=== PATIENT | female | born 1960 | race Caucasian/White ===

== ENCOUNTER 2017-02-27 11:55 | Emergency (ER) | payer OTHER ==
[2017-02-27 12:06] VITALS: BP 158/90; PULSE 99; RESP 18; TEMP 98.2; O2SAT 96
[2017-02-27] MEDS ORDERED: IBUPROFEN 200 MG TAB PO ONE (12:26)
--- NOTE | 2017-02-27 12:28 | UCPHY ---
H & P Time Seen by Provider: 02/27/17 12:12 Patient Type: New HPI/ROS: Patient has left ear pain after exposure to loud noise work. 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 This caused physical pain to the left ear while at work at 930 a.m. this morning with persistent mild ache. She has no other associated symptoms. She describes the current intensity as 2/10 in intensity. ROS: No tinnitus No change in her hearing on the affected side. 5 point ROS is otherwise negative Smoking Status: Never smoked Physical Exam: Physical Exam Vital signs are normal. General: No acute distress HEENT: Atraumatic. Eyes: Pupils equal and react to light. Extraocular motions are intact. Ears: Right external canal and TM clear left external canal and TM clear. There is no evidence of TM rupture or other abnormal findings. She reports Lungs: No respiratory distress. Cardiac: Brisk capillary refill is intact throughout. Skin: No rash or pallor. Neuro: Alert and oriented x3 with no sensorimotor deficits. She reports normal hearing in the affected ear when tested with finger rubbing bilaterally Constitutional: Initial Vital Signs Temperature (C) 36.8 C 02/27/17 11:57 Heart Rate 99 02/27/17 11:57 Respiratory Rate 18 02/27/17 11:57 Blood Pressure 158/90 H 02/27/17 11:57 O2 Sat (%) 96 02/27/17 11:57 O2 Delivery Mode Room Air Allergies/Adverse Reactions: celery Allergy (Severe, Verified 02/27/17 12:06) Swelling in mouth tree nut [Nuts] Allergy (Severe, Verified 02/27/17 12:06) Swelling in mouth narcotics Allergy (Severe, Uncoded 02/27/17 12:06) Vomiting Home Medications: Medication Instructions Recorded NK [No Known Home Meds] 02/27/17 Medical Decision Making ED Course/Re-evaluation: The patient with benign exam after exposure to loud noise. She may have spasm of the tensor tympani muscle or other cause of earache. Counseled her to follow up with work comp clinic. Departure - Departure Disposition: Home, Routine, Self-Care Clinical Impression: Otalgia of left ear Condition: Good Instructions: Earache (ED) Additional Instructions: Diagnosis: Otalgia Plan: No work for the next 2 days Consider ear protection with cotton balls while at work Ibuprofen for discomfort as needed Symptoms should improve over the next 2-3 days. Follow up with your work comp clinic if you have any ongoing symptoms beyond the next few days Referrals: NONE *PRIMARY CARE P,. [Primary Care Provider] - As per Instructions Stand Alone Forms: Work Excuse - PQRS PQRS Measurement: NA
== END 2017-02-27 12:41 | disposition home or self-care (01) ==
LOC: CED 11:55
DX: H92.02 Otalgia, left ear (principal); X58.XXXA Exposure to other specified factors, initial encounter; Y99.0 Civilian activity done for income or pay
CPT/HCPCS: 99203-PO; G0463-PO